=== PATIENT | female | born 1980 | race Caucasian/White ===

== ENCOUNTER 2017-02-09 05:29 | Day surgery (SDC) | payer BC ==
[~2017-02-09 05:29] MED LIST: ADVIL200 M2 PO; BENADRYL25 M3 PO; CLARITIN10 M6 PO; FAMOTIDINE20 M3 PO; HYDROCODON-ACE1 EA16 PO; MULTIVITAMINS1 EAC6 PO; PERCOCET 5-3251 EACH PO; SYMBICORT 160-1 PUFF INH; ULTRAM50 M1 PO; VITAMIN C500 M3 PO; VITAMIN D31000 UNI3 PO
== END 2017-02-09 11:20 ==
LOC: SHSB 05:29 → ORW 07:25 → PACU 08:42 → SHSB 09:40
PROC: 0FT44ZZ Resection of Gallbladder, Percutaneous Endoscopic Approach (ICD-10-PCS; principal; 2017-02-09)
PROC: BF10YZZ Fluoroscopy of Bile Ducts using Other Contrast (ICD-10-PCS; 2017-02-09)
DX: K82.8 Other specified diseases of gallbladder (principal); E66.9 Obesity, unspecified; M19.90 Unspecified osteoarthritis, unspecified site; F41.9 Anxiety disorder, unspecified; J45.990 Exercise induced bronchospasm; F17.210 Nicotine dependence, cigarettes, uncomplicated; K21.9 Gastro-esophageal reflux disease without esophagitis; Z79.899 Other long term (current) drug therapy; Z88.1 Allergy status to other antibiotic agents; Z90.79 Acquired absence of other genital organ(s); Z98.890 Other specified postprocedural states
CPT/HCPCS: C1894; C9290; J0690; J1170; J1200; J2765; J3010; J7030; J7050; Q9966